=== PATIENT | male | born 1945 | race Caucasian/White ===

== ENCOUNTER 2017-06-02 00:23 | Inpatient (IN) | payer MEDICAID ==
[~2017-06-02] VITALS: Ht 177.8 cm; Wt 94.8 kg
[~2017-06-02 00:23] MED LIST: ACET-2178 PO; AMLO10TA4 PO; ATOR10TA PO; CARB200T PO; CLON0.5T4 PO; COLACE PO; CRANBERRY CAP PO; DONE5TAB7 PO; DOXA4TAB2 PO; DULCOLAX SUPP RC; DUONEB INH; ENAL5TAB75 PO; FLEET ENEMA RC; KEPP500 PO; LAM25 PO; MILK OF MAGNESIA PO; MULTIVITAMIN PO; OMEP20TA2 PO; TRAZ-129 PO
[2017-06-02] MEDS ORDERED: SODIUM CHLORIDE 0.9% 1,000 ML IV ONE (01:16)
[2017-06-02 01:47] LABS: BASOPHILS % 0.4 % (0.0-2.0); EOSINOPHILS % 4.9 % (0.0-5.0); HEMATOCRIT. 43.1 % (42.0-52.0); HEMOGLOBIN. 14.5 g/dL (14.0-18.0); LYMPHOCYTES % 26.3 % (20.0-50.0); MEAN CORPUSCULAR HEMOGLOBIN 30.9 pg (28.0-32.0); MEAN PLATELET VOLUME 7.8 fl (7.4-10.4); MONOCYTES % 8.5 % (2.0-8.0); NEUTROPHILS % 59.9 % (40.0-76.0); PLATELET 306 x1000/uL (130-400); RED BLOOD CELL COUNT 4.69 mill/uL (4.7-6.1); RED CELL DISTRIBUTION WIDTH 12.6 % (11.6-14.6)
[2017-06-02 01:56] LABS: PROTHROMBIN TIME 10.2 sec (9.4-11.6)
[2017-06-02] MEDS ORDERED: LORAZEPAM 2MG/ML CPJ IV ONE (02:00)
[2017-06-02 02:05] LABS: CARBON DIOXIDE 25 mEq/L (21-32); CHLORIDE 107 mEq/L (98-107); TROPONIN I 0.03 ng/mL (0.00-0.04)
[2017-06-02] MEDS ORDERED: CEFTRIAXONE 1 G PREMIX 50 ML IV ONE (04:00)
[2017-06-02] MEDS ORDERED: AZITHROMYCIN 500 MG in DEXT 5% WATER 250 ML IV ONE (04:00)
[2017-06-02] MEDS ORDERED: ONDANSETRON HCL 4MG/2ML VIAL IV PRN (16:45)
[2017-06-02] MEDS ORDERED: IPRATROPIUM/ALBUTEROL 0.5-3(2.5)MG/3ML NEB INH PRN (16:45)
[2017-06-02] MEDS: LORAZEPAM 2MG/ML CPJ IV PRN (20:04)
[2017-06-02] MEDS: CLONIDINE 0.1MG TABLET PO PRN (20:13)
[2017-06-02 21:54] VITALS: BP 138/81
[2017-06-02 21:58] VITALS: BP 138/81
[2017-06-02] MEDS ORDERED: ENOXAPARIN 40MG/0.4ML SYR SUBCUT SCH (23:00)
[2017-06-02] MEDS: CARBAMAZEPINE 200MG TABLET PO SCH (23:00)
[2017-06-02] MEDS: LAMOTRIGINE 25MG TABLET PO SCH (23:00)
[2017-06-03] VITALS (7 sets, daily range): BP systolic 112–198; BP diastolic 20–129
[2017-06-03] MEDS: LEVOFLOXACIN 500MG PREMIX 100 ML IV SCH ×2 (03:50→20:51)
[2017-06-03] MEDS: CARBAMAZEPINE 200MG TABLET PO SCH ×3 (06:13→20:45)
[2017-06-03] MEDS ORDERED: HALOPERIDOL LACTATE 5MG/ML VIAL IM NR (07:53)
[2017-06-03] MEDS: ASPIRIN 81MG EC TABLET PO SCH (09:00)
[2017-06-03] MEDS: AMLODIPINE 10MG TABLET PO SCH (09:00)
[2017-06-03] MEDS: THIAMINE HCL 100MG TABLET PO SCH (09:00)
[2017-06-03] MEDS: LORAZEPAM 2MG/ML CPJ IV PRN (09:21)
[2017-06-03] MEDS: LAMOTRIGINE 25MG TABLET PO SCH ×2 (10:53→20:44)
[2017-06-03] MEDS: CLONIDINE 0.1MG TABLET PO PRN (12:55)
[2017-06-03 16:51] LABS: CLARITY URINE CLEAR (CLEAR); COLOR URINE YELLOW (YELLOW); KETONES URINE NEGATIVE (NEGATIVE); LEUKOCYTE ESTERASE URINE NEGATIVE (NEGATIVE); NITRITE URINE NEGATIVE (NEGATIVE); OCCULT BLOOD URINE NEGATIVE (NEGATIVE); PROTEIN URINE TRACE (NEGATIVE); SPECIFIC GRAVITY URINE 1.025 (1.005-1.030)
[2017-06-03] MEDS: QUETIAPINE FUMARATE 25MG TABLET PO SCH (20:44)
[2017-06-03] MEDS: ENOXAPARIN 30MG/0.3ML SYR SUBCUT SCH (20:44)
[2017-06-04 04:00] VITALS: BP 160/96
[2017-06-04] MEDS: CARBAMAZEPINE 200MG TABLET PO SCH ×3 (05:35→21:26)
[2017-06-04 08:00] VITALS: BP 156/101
[2017-06-04] MEDS: ASPIRIN 81MG EC TABLET PO SCH (09:06)
[2017-06-04] MEDS: AMLODIPINE 10MG TABLET PO SCH (09:06)
[2017-06-04] MEDS: LAMOTRIGINE 25MG TABLET PO SCH ×2 (09:06→21:26)
[2017-06-04] MEDS: QUETIAPINE FUMARATE 25MG TABLET PO SCH ×2 (09:06→21:26)
[2017-06-04] MEDS: ENOXAPARIN 30MG/0.3ML SYR SUBCUT SCH ×2 (09:06→21:26)
[2017-06-04] MEDS: THIAMINE HCL 100MG TABLET PO SCH (09:06)
[2017-06-04 12:00] VITALS: BP 158/114
[2017-06-04] MEDS ORDERED: ACETAMINOPHEN 325MG TABLET PO PRN (15:45)
[2017-06-04 16:00] VITALS: BP 163/95
[2017-06-04 17:35] LABS: BASOPHILS % 0.7 % (0.0-2.0); EOSINOPHILS % 1.3 % (0.0-5.0); HEMATOCRIT. 43.3 % (42.0-52.0); HEMOGLOBIN. 14.9 g/dL (14.0-18.0); LYMPHOCYTES % 13.6 % (20.0-50.0); MEAN CORPUSCULAR HEMOGLOBIN 31.3 pg (28.0-32.0); MEAN CORPUSCULAR VOLUME 91.2 fL (80.0-94.0); MEAN PLATELET VOLUME 7.8 fl (7.4-10.4); MONOCYTES % 9.7 % (2.0-8.0); NEUTROPHILS % 74.7 % (40.0-76.0); PLATELET 345 x1000/uL (130-400); RED BLOOD CELL COUNT 4.74 mill/uL (4.7-6.1); RED CELL DISTRIBUTION WIDTH 12.7 % (11.6-14.6)
[2017-06-04] MEDS: CLONIDINE 0.1MG TABLET PO PRN (17:51)
[2017-06-04 17:52] LABS: CARBON DIOXIDE 26 mEq/L (21-32); CHLORIDE 104 mEq/L (98-107)
[2017-06-04 17:56] LABS: HDL CHOLESTEROL 59 mg/dL (40-59); LDL CHOLESTEROL 92 mg/dL (5-100); T4 FREE 0.96 ng/dL (0.76-1.46)
[2017-06-04] MEDS ORDERED: PIPERACILLIN/TAZOBACTAM 3.375GM/50ML PREMIX IV SCH (18:30)
[2017-06-04] MEDS: HYDRALAZINE HCL 50MG TABLET PO SCH (18:41)
[2017-06-04] MEDS: SODIUM CHLORIDE 0.45% 1,000 ML IV SCH (18:42)
[2017-06-04] MEDS: ALBUTEROL (0.083%) 2.5MG/3ML NEB HHN SCH (20:00)
[2017-06-04 20:38] VITALS: BP 189/102
[2017-06-04] MEDS ORDERED: LEVOFLOXACIN 500MG PREMIX 100 ML IV SCH (21:00)
[2017-06-04] MEDS: PIPERACILLIN/TAZ 3.375G PREMIX 50 ML IV SCH (21:26)
[2017-06-04] MEDS: LORAZEPAM 2MG/ML CPJ IV PRN (21:55)
[2017-06-05 00:06] VITALS: BP 172/104
[2017-06-05] MEDS: CLONIDINE 0.1MG TABLET PO PRN (00:31)
[2017-06-05] MEDS: PIPERACILLIN/TAZ 3.375G PREMIX 50 ML IV SCH ×4 (00:31→17:36)
[2017-06-05] MEDS: ALBUTEROL (0.083%) 2.5MG/3ML NEB HHN SCH ×6 (00:39→21:10)
[2017-06-05] MEDS: HYDRALAZINE HCL 50MG TABLET PO SCH ×3 (03:17→18:45)
[2017-06-05 04:00] VITALS: BP 151/106
[2017-06-05] MEDS: CARBAMAZEPINE 200MG TABLET PO SCH ×3 (06:06→21:43)
[2017-06-05 08:00] VITALS: BP 130/82
[2017-06-05] MEDS: THIAMINE HCL 100MG TABLET PO SCH (08:29)
[2017-06-05] MEDS: AMLODIPINE 10MG TABLET PO SCH (08:29)
[2017-06-05] MEDS: ENOXAPARIN 30MG/0.3ML SYR SUBCUT SCH ×2 (08:29→21:42)
[2017-06-05] MEDS: QUETIAPINE FUMARATE 25MG TABLET PO SCH ×2 (08:29→21:42)
[2017-06-05] MEDS: ASPIRIN 81MG EC TABLET PO SCH (08:29)
[2017-06-05] MEDS: LAMOTRIGINE 25MG TABLET PO SCH ×2 (08:29→21:42)
[2017-06-05 11:36] LABS: BASOPHILS % 0.3 % (0.0-2.0); HEMATOCRIT. 44.6 % (42.0-52.0); HEMOGLOBIN. 15.1 g/dL (14.0-18.0); LYMPHOCYTES % 11.2 % (20.0-50.0); MEAN CORPUSCULAR HEMOGLOBIN 31.3 pg (28.0-32.0); MEAN CORPUSCULAR VOLUME 92.4 fL (80.0-94.0); MEAN PLATELET VOLUME 7.9 fl (7.4-10.4); MONOCYTES % 8.9 % (2.0-8.0); NEUTROPHILS % 78.6 % (40.0-76.0); PLATELET 322 x1000/uL (130-400); RED BLOOD CELL COUNT 4.83 mill/uL (4.7-6.1); RED CELL DISTRIBUTION WIDTH 12.8 % (11.6-14.6)
[2017-06-05 11:55] LABS: CARBON DIOXIDE 22 mEq/L (21-32); CHLORIDE 104 mEq/L (98-107); TROPONIN I < 0.02 ng/mL (0.00-0.04)
[2017-06-05 12:00] VITALS: BP 108/62
[2017-06-05 16:00] VITALS: BP 124/77
[2017-06-05] MEDS: SODIUM CHLORIDE 0.45% 1,000 ML IV SCH (17:36)
[2017-06-05 20:41] VITALS: BP 130/83
[2017-06-05] MEDS: LEVOFLOXACIN 500MG TABLET PO SCH (21:42)
[2017-06-06] VITALS: BP 132/76
[2017-06-06] MEDS: PIPERACILLIN/TAZ 3.375G PREMIX 50 ML IV SCH ×5 (00:40→23:10)
[2017-06-06] MEDS: HYDRALAZINE HCL 50MG TABLET PO SCH ×3 (03:12→17:06)
[2017-06-06 04:00] VITALS: BP 168/90
[2017-06-06] MEDS: CARBAMAZEPINE 200MG TABLET PO SCH ×3 (06:00→21:27)
[2017-06-06 08:00] VITALS: BP 130/87
[2017-06-06] MEDS: LAMOTRIGINE 25MG TABLET PO SCH ×2 (09:28→21:27)
[2017-06-06] MEDS: QUETIAPINE FUMARATE 25MG TABLET PO SCH ×2 (09:28→21:27)
[2017-06-06] MEDS: ENOXAPARIN 30MG/0.3ML SYR SUBCUT SCH ×2 (09:29→21:28)
[2017-06-06] MEDS: AMLODIPINE 10MG TABLET PO SCH (09:29)
[2017-06-06] MEDS: ASPIRIN 81MG EC TABLET PO SCH (09:29)
[2017-06-06] MEDS: THIAMINE HCL 100MG TABLET PO SCH (09:34)
[2017-06-06 09:51] LABS: BASOPHILS % 0.6 % (0.0-2.0); EOSINOPHILS % 0.7 % (0.0-5.0); HEMATOCRIT. 46.2 % (42.0-52.0); HEMOGLOBIN. 15.6 g/dL (14.0-18.0); LYMPHOCYTES % 13.6 % (20.0-50.0); MEAN CORPUSCULAR HEMOGLOBIN 31.4 pg (28.0-32.0); MEAN CORPUSCULAR VOLUME 92.9 fL (80.0-94.0); MONOCYTES % 8.3 % (2.0-8.0); NEUTROPHILS % 76.8 % (40.0-76.0); PLATELET 352 x1000/uL (130-400); RED BLOOD CELL COUNT 4.97 mill/uL (4.7-6.1); RED CELL DISTRIBUTION WIDTH 12.8 % (11.6-14.6)
[2017-06-06 10:26] LABS: CARBON DIOXIDE 23 mEq/L (21-32); CHLORIDE 106 mEq/L (98-107)
[2017-06-06 12:00] VITALS: BP 144/80
[2017-06-06] MEDS ORDERED: SODIUM BICARBONATE 4% (2.4MEQ) 5ML VIAL IV ONE (13:39)
[2017-06-06] MEDS ORDERED: LIDOCAINE HCL 1% 20ML VIAL (Pyxis) INJ ONE (13:39)
[2017-06-06 16:00] VITALS: BP 144/72
[2017-06-06 20:00] VITALS: BP 129/80
[2017-06-06] MEDS: LEVOFLOXACIN 500MG TABLET PO SCH (21:27)
[2017-06-06] MEDS: SODIUM CHLORIDE 0.45% 1,000 ML IV SCH (21:29)
[2017-06-07] VITALS: BP 130/85
[2017-06-07] MEDS: ALBUTEROL (0.083%) 2.5MG/3ML NEB HHN SCH ×6 (00:35→21:16)
[2017-06-07] MEDS: HYDRALAZINE HCL 50MG TABLET PO SCH ×3 (02:36→17:21)
[2017-06-07 04:00] VITALS: BP 121/70
[2017-06-07] MEDS: PIPERACILLIN/TAZ 3.375G PREMIX 50 ML IV SCH ×4 (06:00→23:39)
[2017-06-07] MEDS: CARBAMAZEPINE 200MG TABLET PO SCH ×3 (06:49→21:40)
[2017-06-07] MEDS: LORAZEPAM 2MG/ML CPJ IV PRN (07:09)
[2017-06-07 08:00] VITALS: BP 136/71
[2017-06-07] MEDS: LAMOTRIGINE 25MG TABLET PO SCH ×2 (08:15→21:40)
[2017-06-07] MEDS ORDERED: HALOPERIDOL LACTATE 5MG/ML VIAL IM SCH (08:15)
[2017-06-07] MEDS: THIAMINE HCL 100MG TABLET PO SCH (08:16)
[2017-06-07] MEDS: AMLODIPINE 10MG TABLET PO SCH (08:16)
[2017-06-07] MEDS: ASPIRIN 81MG EC TABLET PO SCH (08:16)
[2017-06-07] MEDS: QUETIAPINE FUMARATE 25MG TABLET PO SCH ×2 (08:16→21:40)
[2017-06-07] MEDS: ENOXAPARIN 30MG/0.3ML SYR SUBCUT SCH ×2 (08:28→21:40)
[2017-06-07 12:00] VITALS: BP 135/71
[2017-06-07 16:00] VITALS: BP 145/77
[2017-06-07 20:00] VITALS: BP 147/72
[2017-06-07] MEDS: LEVOFLOXACIN 500MG TABLET PO SCH (21:40)
[2017-06-07] MEDS: SODIUM CHLORIDE 0.45% 1,000 ML IV SCH (21:40)
[2017-06-08] VITALS: BP 160/82
[2017-06-08] MEDS: ALBUTEROL (0.083%) 2.5MG/3ML NEB HHN SCH ×5 (00:50→20:00)
[2017-06-08] MEDS: HYDRALAZINE HCL 50MG TABLET PO SCH ×3 (01:15→17:01)
[2017-06-08] MEDS: CARBAMAZEPINE 200MG TABLET PO SCH ×3 (05:20→21:05)
[2017-06-08] MEDS: PIPERACILLIN/TAZ 3.375G PREMIX 50 ML IV SCH ×4 (05:20→23:07)
[2017-06-08 07:20] LABS: BASOPHILS % 0.7 % (0.0-2.0); EOSINOPHILS % 3.1 % (0.0-5.0); HEMATOCRIT. 38.6 % (42.0-52.0); HEMOGLOBIN. 13.5 g/dL (14.0-18.0); LYMPHOCYTES % 19.3 % (20.0-50.0); MEAN CORPUSCULAR HEMOGLOBIN 32.3 pg (28.0-32.0); MEAN CORPUSCULAR VOLUME 92.7 fL (80.0-94.0); MEAN PLATELET VOLUME 8.5 fl (7.4-10.4); MONOCYTES % 11.4 % (2.0-8.0); NEUTROPHILS % 65.5 % (40.0-76.0); PLATELET 265 x1000/uL (130-400); RED BLOOD CELL COUNT 4.16 mill/uL (4.7-6.1); RED CELL DISTRIBUTION WIDTH 12.6 % (11.6-14.6)
[2017-06-08 08:00] VITALS: BP 134/74
[2017-06-08 08:05] LABS: CARBON DIOXIDE 25 mEq/L (21-32); CHLORIDE 104 mEq/L (98-107)
[2017-06-08] MEDS: LAMOTRIGINE 25MG TABLET PO SCH ×2 (08:27→21:04)
[2017-06-08] MEDS: ENOXAPARIN 30MG/0.3ML SYR SUBCUT SCH ×2 (08:27→21:05)
[2017-06-08] MEDS: THIAMINE HCL 100MG TABLET PO SCH (08:28)
[2017-06-08] MEDS: QUETIAPINE FUMARATE 25MG TABLET PO SCH ×2 (08:28→21:05)
[2017-06-08] MEDS: ASPIRIN 81MG EC TABLET PO SCH (08:28)
[2017-06-08] MEDS: AMLODIPINE 10MG TABLET PO SCH (08:28)
[2017-06-08 12:00] VITALS: BP 165/77
[2017-06-08] MEDS ORDERED: POTASSIUM CHLORIDE 10MEQ TABLET SR PO NR (14:15)
[2017-06-08 20:00] VITALS: BP 146/70
[2017-06-08] MEDS: SODIUM CHLORIDE 0.45% 1,000 ML IV SCH (21:04)
[2017-06-08] MEDS: LEVOFLOXACIN 500MG TABLET PO SCH (21:04)
[2017-06-09] VITALS: BP 125/70
[2017-06-09] MEDS: ALBUTEROL (0.083%) 2.5MG/3ML NEB HHN SCH ×2 (00:35→04:00)
[2017-06-09] MEDS: HYDRALAZINE HCL 50MG TABLET PO SCH ×2 (01:31→09:10)
[2017-06-09 04:00] VITALS: BP 151/79
[2017-06-09] MEDS: CARBAMAZEPINE 200MG TABLET PO SCH (05:07)
[2017-06-09] MEDS: PIPERACILLIN/TAZ 3.375G PREMIX 50 ML IV SCH ×2 (05:07→12:36)
[2017-06-09 06:57] LABS: BASOPHILS % 0.9 % (0.0-2.0); EOSINOPHILS % 6.1 % (0.0-5.0); HEMATOCRIT. 35.9 % (42.0-52.0); HEMOGLOBIN. 12.3 g/dL (14.0-18.0); LYMPHOCYTES % 16.8 % (20.0-50.0); MEAN CORPUSCULAR VOLUME 93.5 fL (80.0-94.0); MEAN PLATELET VOLUME 8.3 fl (7.4-10.4); MONOCYTES % 11.3 % (2.0-8.0); NEUTROPHILS % 64.9 % (40.0-76.0); PLATELET 244 x1000/uL (130-400); RED BLOOD CELL COUNT 3.84 mill/uL (4.7-6.1); RED CELL DISTRIBUTION WIDTH 12.8 % (11.6-14.6)
[2017-06-09 08:00] VITALS: BP 141/75
[2017-06-09 08:35] LABS: CARBON DIOXIDE 25 mEq/L (21-32); CHLORIDE 104 mEq/L (98-107)
[2017-06-09] MEDS: AMLODIPINE 10MG TABLET PO SCH (09:09)
[2017-06-09] MEDS: THIAMINE HCL 100MG TABLET PO SCH (09:09)
[2017-06-09] MEDS: QUETIAPINE FUMARATE 25MG TABLET PO SCH (09:09)
[2017-06-09] MEDS: ASPIRIN 81MG EC TABLET PO SCH (09:09)
[2017-06-09] MEDS: LAMOTRIGINE 25MG TABLET PO SCH (09:10)
[2017-06-09] MEDS: ENOXAPARIN 30MG/0.3ML SYR SUBCUT SCH (09:10)
[2017-06-09] MEDS: SODIUM CHLORIDE 0.45% 1,000 ML IV SCH (10:15)
[2017-06-09 12:00] VITALS: BP 168/72
== END 2017-06-09 13:42 | DRG 757 ==
LOC: ER 00:37 → OBSVTOIN 03:58 → 7WST 03:58 → INTOOBSV 03:58 → EDBEDREQTM 03:59 → EDBEDREQ 03:59 → ENRESERV 19:29
PROVIDERS: ADMIT Ophthalmology; ATTEND Internal Medicine
PROC: 02HV33Z Insertion of Infusion Device into Superior Vena Cava, Percutaneous Approach (ICD-10-PCS; principal; 2017-06-07)
PROC: B548ZZA Ultrasonography of Superior Vena Cava, Guidance (ICD-10-PCS; 2017-06-07)
DX: F01.50 Vascular dementia, unspecified severity, without behavioral disturbance, psychotic disturbance, mood disturbance, and anxiety (principal); J18.9 Pneumonia, unspecified organism; G93.40 Encephalopathy, unspecified; I11.0 Hypertensive heart disease with heart failure; I50.9 Heart failure, unspecified; G40.409 Other generalized epilepsy and epileptic syndromes, not intractable, without status epilepticus; I69.311 Memory deficit following cerebral infarction; J44.0 Chronic obstructive pulmonary disease with (acute) lower respiratory infection; E66.01 Morbid (severe) obesity due to excess calories; M19.90 Unspecified osteoarthritis, unspecified site; M71.9 Bursopathy, unspecified; Z68.30 Body mass index [BMI] 30.0-30.9, adult; Z79.899 Other long term (current) drug therapy
CPT/HCPCS: 36415; 36569; 70450; 71045; 76937; 80048; 80053; 80061; 80156; 81001; 83605; 84439; 84443; 84484; 85025; 85610; 87040; 87804; 94664; 97162; 99291; A6261; C1725; C1893; J0456; J0696; J1630; J1650; J1956; J2060; J2543; J3490; J7030; J7050; J7060; J7611; J7620